=== PATIENT | female | born 2000 | race Two or more races ===

== ENCOUNTER 2022-04-20 14:55 | Emergency (ER) | payer MEDICAID, OTHER ==
[~2022-04-20] VITALS: Ht 167.6 cm; Wt 65.8 kg
[2022-04-20 15:13] VITALS: BP 100/57
[2022-04-20 16:23] LABS: Basophils # (auto) 0.1 10 ^3/uL (0-0.2); Eosinophils # (auto) 0.1 10 ^3/uL (0-0.8); Eosinophils % (auto) 0.9 % (0.0-7.0); Hematocrit 36.4 % (36.0-46.0); Hemoglobin 12.7 g/dL (12.2-16.2); Lymphocytes % (auto) 31.4 % (10.0-50.0); Monocytes # (auto) 0.7 10 ^3/uL (0-1.3); Monocytes % (auto) 10.1 % (0.0-12.0); Neutrophils # (auto) 3.7 10 ^3/uL (1.6-8.6); Neutrophils % (auto) 56.6 % (37.0-80.0); Nucleated Red Blood Cells % 0.1 %; Red Blood Cells 4.56 10^6/uL (4.0-5.20); Red Cell Distribution Width 13.8 % (11.8-14.3); White Blood Cell 6.5 10^3/uL (4.4-10.8)
[2022-04-20 16:35] LABS: Albumin 3.8 g/dL (3.4-5.0); Calcium 8.9 mg/dL (8.5-10.1); Potassium 3.8 mmol/L (3.5-5.1)
[2022-04-20 16:39] LABS: BUN/Creatinine Ratio 10.5; Bilirubin, Total 0.6 mg/dL (0.2-1.0); Total Protein 7.9 g/dL (6.4-8.2)
== END 2022-04-20 18:12 | disposition home or self-care (01) ==
LOC: ER 14:55
DX: N94.6 Dysmenorrhea, unspecified (principal)
CPT/HCPCS: 36415; 80053; 84702; 85025

== ENCOUNTER 2023-06-07 19:59 | Emergency (ER) | payer SELFPAY ==
[~2023-06-07] VITALS: Ht 167.6 cm; Wt 73.0 kg
[2023-06-07 19:59] VITALS: BP 131/84
[2023-06-07] MEDS ORDERED: LIDOCAINE 1% HCL (LOCAL ANESTH.) INJ 20ML MDV ID ONE (20:30)
[2023-06-07] MEDS ORDERED: TETANUS-DIPTH-ACEL PERTUSSIS 0.5ML SYR Tdap IM ONE (20:30)
[2023-06-07] MEDS ORDERED: NEOMYCIN-BACITRACIN-POLYM UNITDOSE PKG TOP OINT TOP ONE (22:00)
[2023-06-07] MEDS ORDERED: IBUPROFEN 600 MG TAB PO ONE (22:00)
[2023-06-07] MEDS ORDERED: AMOXICILLIN/CLAVUL 875 MG TAB PO ONE (22:00)
[2023-06-07] MEDS ORDERED: IBU600T PO (22:01)
[2023-06-07] MEDS ORDERED: MUPI2OIN2 EX (22:01)
[2023-06-07] MEDS ORDERED: AUG875T PO (22:01)
== END 2023-06-07 22:32 | disposition home or self-care (01) ==
LOC: ER 19:59
DX: S51.812A Laceration without foreign body of left forearm, initial encounter (principal); S51.832A Puncture wound without foreign body of left forearm, initial encounter; F12.90 Cannabis use, unspecified, uncomplicated; Z79.899 Other long term (current) drug therapy; W54.0XXA Bitten by dog, initial encounter; Y93.89 Activity, other specified; Y92.89 Other specified places as the place of occurrence of the external cause; Y99.8 Other external cause status
CPT/HCPCS: 12002; 73090; 90471; 90715; 99283; J2001

== ENCOUNTER 2023-06-15 12:13 | Emergency (ER) | payer SELFPAY ==
[~2023-06-15] VITALS: Ht 167.6 cm; Wt 72.3 kg
[2023-06-15 12:13] VITALS: BP 114/75; PULSE 54; RESP 17; TEMP 97; O2SAT 98
[~2023-06-15 12:13] MED LIST: AUG875T PO; IBU600T PO; MUPI2OIN2 EX
== END 2023-06-15 17:00 | disposition home or self-care (01) ==
LOC: ER 12:13
DX: T14.8XXD Other injury of unspecified body region, subsequent encounter (principal); F12.90 Cannabis use, unspecified, uncomplicated; Z79.899 Other long term (current) drug therapy